=== PATIENT | female | born 1930 | race Caucasian/White ===

== ENCOUNTER → 2021-06-01 | Outpatient (CLI) | payer OTHER | LOC: CT 11:33 | PROVIDERS: ATTEND Family Medicine | DX: S00.83XA Contusion of other part of head, initial encounter (principal); Z91.81 History of falling | CPT/HCPCS: 70450 ==

== ENCOUNTER → 2021-06-05 | Outpatient (CLI) | payer OTHER | LOC: MRI 09:24 | PROVIDERS: ATTEND Anesthesiology Pain Medicine | DX: G89.4 Chronic pain syndrome (principal) | CPT/HCPCS: 72141 ==

== ENCOUNTER → 2021-07-12 | Outpatient (CLI) | payer OTHER | LOC: RAD 09:37 | PROVIDERS: ATTEND Anesthesiology Pain Medicine | DX: M25.562 Pain in left knee (principal); G89.4 Chronic pain syndrome ==